=== PATIENT | female | born 1985 | race Caucasian/White ===

== ENCOUNTER 2017-04-06 18:42 | Inpatient (IN) | payer BC ==
[2017-04-06] MEDS ORDERED: Ondansetron 4 MG/2 ML SDV IVPUSH PRN ×2 (19:20→22:13)
[2017-04-06] MEDS ORDERED: Sodium Chloride 0.9% 10 ML Syringe FLUSH PRN (19:20)
[2017-04-06] MEDS ORDERED: Lidocaine 1% 50 ML MDV INJECT ONE (19:20)
[2017-04-06] MEDS ORDERED: Oxytocin/Lactated Ringers 10 UNIT/1,000 ML BAG IV SCH (19:30)
--- NOTE | 2017-04-06 19:38 | PCM.LDHP ---
L&D History of Present Illness - General Date of Service: 04/06/17 Admit Problem/Dx: Patient Status Order with Admit Dx/Problem 04/06/17 19:21 Patient Status [ADT] Routine Admission Diagnosis/Problem Admission Diagnosis/Problem Normal 04/06/17 19:25 Kristen is a 31-year-old 4 para 3003 white female admitted for elective induction of labor at 39-1/7 weeks gestational age with an KG of 04/12/2017 Source of Information: Patient History Limitations: Reports: No Limitations - History of Present Illness Introduction:: Kristen is a 31-year-old 4 para 3003 white female admitted for elective induction of labor. She lives in [facility], has a history of rapid labors and requested induction of labor for this reason. Her KG is 2016 which places her at 39-1/7 weeks. KG is set by an early ultrasound done on 09/26/1999 1711 5/7 weeks gestational age. This is supported by another ultrasound on 11/25/2016. Patient's course has been relatively unremarkable. She has had a decreased platelet count on evaluation. She desires epidural in labor delivery. She had a flu vaccination on 09/26/2016. Her group B strep screen is negative. She did have some abdominal trauma with the shopping cart which ran into her abdomen on 12/05/2016. Has a history of abruption O 2 with the last 2 pregnancies. She does smoke. She plans to nurse. Past history includes the followin. Male born 06/10/2002 at 40 weeks gestational age/6 hours of labor/5 lbs. 1 oz./epidural used/normal spontaneous vaginal delivery 2. Male born 03/11/2009/38 weeks gestational age/4 hours of labor/epidural /normal spontaneous vaginal delivery/abruptio placentae 3. Male infant born 10/04/2011 at 37 weeks gestational age/1 hour labor/5 lbs. 5 oz./epidural/normal spontaneous vaginal delivery/abruption course was otherwise unremarkable. Her first visit was on 09/19. She had regular evaluations throughout and was seen on a routine basis. Her weight gainfrom 150.1 pounds up to 182 pounds for a 32 pound weight gain. Her vital signs remained stable throughout the . Fundal height growth was appropriate. Laboratory testing showed a blood type O+. Initial prenatals labs showed hemoglobin 14.4 platelets 174. Shows normal. Rubella titer shows immunity. RPR is nonreactive. Hepatitis B surface antigen was negative. HIV SCDs negative. GC and chlamydia assays were both negative. Second trimester labs included a hemoglobin which is normal at 12.8 g/dL. Platelets are 162,000. Diabetic screen was normal at 96. Urine culture initially showed Gardnerella vaginalis and patient was treated for this. fibronectin at the time of the shopping cart and segment was negative. She is planning on circumcision for this point. She plans to progress. 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 Tylenol 3 when necessary, patient apparently has no problems with codeine. 2. vitamins 1 daily. Past medical history: 1. Normal spontaneous vaginal delivery 3. 2. Abnormal Pap smear 2013 Past surgical history: 1. Breast augmentation surgery 2. Tonsillectomy as a child 3. Laparoscopy 2 in the years 2001 and 2011 for endometriosis. Family history: mother is alive and well with history of kidney cancer. She also has adult-onset diabetes mellitus. Father is alive and well. 2 brothers and 1 sister alive and well. Maternal grandmother secondary to ovarian cancer. Maternal great grandmother secondary to ovarian cancer. Maternal grandfather is alive but health is unknown. Paternal grandmother secondary to ovarian cancer. Paternal grandfather secondary to bone cancer. No related problems, anesthesia, bleeding or clotting problems noted in the family. Social history: Patient is . is Jessica Nugent. She smokes approximately 7 cigarettes per day. She lives in [facility]. She does not use any drugs or alcohol. She does not work outside the home at this time. Review of systems: In general patient has no complaints. skin-negative Lungs-no infectious symptoms or asthma Cardiovascular-no chest pain or exercise intolerance Breasts-changes associated with -induced GI - -changes associated principally with increased fundal height Musculoskeletal -occasional swelling otherwise unremarkable Neurologic -negative Physical exam: In general the patient is a well-developed, well-nourished, pleasant female stated age in no acute distress. Blood pressure on last evaluation clinic was 108/72, weight was 182.6, heart rate was 133. Her height is 5 feet 11. Pregravid weight is 150.13 with a body mass index of 20.2. In general the patient is a well-developed well-nourished pleasant female stated age in no acute distress. Skin is warm and dry without lesions. Lungs are clear with good breath sounds in all lung bell. Cardiovascular exam shows regular and rhythm without murmurs. Rest exam deferred having that done at her first visit and found to be normal. Breast augmentation has been performed. Abdomen is protuberant with the Spring C fundal height approximately 38 cm. Baby in vertex presentation. Cervix is 2 cm plus/80% effaced/soft/-2/anterior/artificial rupture membranes is performed and reveals clear amniotic fluid Extremities and neurological exam grossly within normal limits. - Related Data Allergies/Adverse Reactions: Allergies Allergy/AdvReac Type Severity Reaction Status Date / Time morphine Allergy Severe Airway Verified 12/27/16 12:40 Tightness H&P Review of Systems - Review of Systems: Review Of Systems: See Below L&D Exam - Exam Exam: See Below - Vital Signs Weight: 82.157 kg Problem List Initiated/Reviewed/Updated: Yes Orders Last 24hrs: Active Orders 24 hr Category Date Time Status Patient Status [ADT] Routine ADT 04/06/17 19:21 Ordered Activity as Tolerated [RC] PFP Care 04/06/17 19:21 Ordered Communication Order [RC] ASDIRECTED Care 04/06/17 19:21 Ordered Heart Tones [RC] ASDIRECTED Care 04/06/17 19:21 Ordered Notify Provider [RC] PFP Care 04/06/17 19:21 Ordered Notify Provider [RC] PRN Care 04/06/17 19:21 Ordered Peripheral IV Care [RC] . DIRECTED Care 04/06/17 19:21 Ordered Pump Management, Intrathecal [RC] ASDIRECTED Care 04/06/17 19:22 Ordered Vital Signs [RC] PER UNIT ROUTINE Care 04/06/17 19:21 Ordered Regular Diet [DIET] Diet 04/06/17 Dinner Ordered CBC WITH AUTO DIFF [HEME] Stat Lab 04/06/17 19:20 Ordered Lactated Ringers [Ringers, Lactated] 1,000 ml Med 04/06/17 19:30 Ordered IV ASDIRECTED Lidocaine 1% [Xylocaine 1%] Med 04/06/17 19:20 Once 10 ml INJECT ONETIME ONE Ondansetron [Zofran] Med 04/06/17 19:20 Ordered 4 mg IVPUSH Q4H PRN Oxytocin/Lactated Ringers [Pitocin in LR 10 Units/1,000 Med 04/06/17 19:30 Ordered ML] 10 unit in 1,000 ml IV TITRATE Sodium Chloride 0.9% [Saline Flush] Med 04/06/17 19:20 Ordered 10 ml FLUSH ASDIRECTED PRN Electronic Heart Tones Ext w TOCO [WOMSER] Ot 04/06/17 19:21 Ordered Routine Electronic Heart Tones Internal [WOMSER] Per Unit Ot 04/06/17 19:21 Ordered Routine Peripheral IV Insertion Adult [OM.PC] Routine Ot 04/06/17 19:21 Ordered Resuscitation Status Routine Resus Stat 04/06/17 19:20 Ordered Assessment/Plan Comment:: Assessment: 1. 39-1/7 week intrauterine , history of rapid labors, increased distance from the hospital as she lives in [facility], multiparous patient with desire for induction of labor. 2. Group B strep screen is negative 3. Patient plans to nurse 4. Desires epidural in labor Plan: 1. Artificial rupture membranes induction of labor. Will augment with Pitocin as necessary. Procedure, risks, benefits are all discussed in detail patient. She appears to understand and wishes to proceed. 2. Encourage nursing after delivery 3. Epidural when necessary 4. Routine soft regular diet in labor.
[2017-04-06] MEDS ORDERED: Pneumococcal Polyvalent-23 Vaccine 0.5 ML SDV IM ONE (20:41)
[2017-04-06] MEDS: Lactated Ringers 1,000 ML IV SCH ×2 (21:07→22:55)
[2017-04-06] MEDS ORDERED: fentaNYL 100 MCG/2 ML SDV EPIDUR PRN (22:13)
[2017-04-06] MEDS ORDERED: ePHEDrine 50 MG/ML SDV IVPUSH PRN (22:13)
[2017-04-06] MEDS ORDERED: Bupivacaine/fentaNYL/NS 100 ML Bag EPIDUR SCH (22:15)
--- NOTE | 2017-04-06 22:18 | PCM.PREANE ---
Preanesthetic Assessment - Anesthesia/Transfusion/Family Hx Anesthesia History: Prior Anesthesia Without Reaction Family History of Anesthesia Reaction: No Transfusion History: No Prior Transfusion(s) Intubation History: Unknown - Review of Systems General: No Symptoms Pulmonary: No Symptoms (smokes 1/2 pack/day times 15 years) Cardiovascular: No Symptoms Gastrointestinal: No Symptoms Neurological: No Symptoms Other: Reports: None - Physical Assessment NPO Status Date: 04/06/17 NPO Status Time: 22:15 Pulse: 79 O2 Sat by Pulse Oximetry: 99 Respiratory Rate: 18 Blood Pressure: 121/73 Temperature: 36.6 C Vital Signs: Last Vital Signs Temp 36.6 C 04/06/17 19:21 Pulse 79 04/06/17 19:21 Resp 18 04/06/17 19:21 BP 121/73 04/06/17 19:21 Pulse Ox 99 04/06/17 19:21 Height: 1.8 m Weight: 85.275 kg ASA Class: 2 Mental Status: Alert & Oriented x3 Airway Class: Mallampati = 2 Dentition: Reports: Normal Dentition (tongue piercing noted), Caries Thyro-Mental Finger Breadths: 3 Mouth Opening Finger Breadths: 3 ROM/Head Extension: Full Lungs: Clear to Auscultation, Normal Respiratory Effort Cardiovascular: Regular Rate, Regular Rhythm, No Murmurs - Lab Values: Laboratory Last Values WBC 13.82 K/mm3 (3.98-10.04) H 04/06/17 19:35 RBC 3.92 M/mm3 (3.98-5.22) L 04/06/17 19:35 Hgb 12.5 gm/L (11.2-15.7) 04/06/17 19:35 Hct 35.7 % (34.1-44.9) 04/06/17 19:35 MCV 91.1 fl (79.4-94.8) 04/06/17 19:35 MCH 31.9 pg (25.6-32.2) 04/06/17 19:35 MCHC 35.0 g/dl (32.2-35.5) 04/06/17 19:35 RDW Std Deviation 42.4 fL (36.4-46.3) 04/06/17 19:35 Plt Count 203 K/mm3 (182-369) 04/06/17 19:35 MPV 10.8 fl (9.4-12.3) 04/06/17 19:35 Neut % (Auto) 70.0 % (34.0-71.1) 04/06/17 19:35 Lymph % (Auto) 20.9 % (19.3-51.7) 04/06/17 19:35 [place] % (Auto) 7.5 % (4.7-12.5) 04/06/17 19:35 Eos % (Auto) 0.9 (0.7-5.8) 04/06/17 19:35 Baso % (Auto) 0.2 % (0.1-1.2) 04/06/17 19:35 Neut # (Auto) 9.67 K/mm3 (1.56-6.13) H 04/06/17 19:35 Lymph # (Auto) 2.89 K/mm3 (1.18-3.74) 04/06/17 19:35 [place] # (Auto) 1.04 K/mm3 (0.24-0.36) H 04/06/17 19:35 Eos # (Auto) 0.12 K/mm3 (0.04-0.36) 04/06/17 19:35 Baso # (Auto) 0.03 K/mm3 (0.01-0.08) 04/06/17 19:35 Above labs reviewed and noted. - Allergies Allergies/Adverse Reactions: Allergies Allergy/AdvReac Type Severity Reaction Status Date / Time morphine Allergy Severe Airway Verified 04/06/17 20:49 Tightness - Anesthesia Plan Pre-Op Medication Ordered: None - Acknowledgements Anesthesia Type Planned: Epidural Pt an Appropriate Candidate for the Planned Anesthesia: Yes Alternatives and Risks of Anesthesia Discussed w Pt/Guardian: Yes Pt/Guardian Understands and Agrees with Anesthesia Plan: Yes PreAnesthesia Questionnaire [employer] History: Reports: , Other (See Below) Other OB/BYN History: hx of abruption x2 - Past Surgical History HEENT Surgical History: Reports: Tonsillectomy Female Surgical History: Reports: Breast Implant, Other (See Below) Other Female Surgeries/Procedures: Abnormal pap in 2014 - SUBSTANCE USE Smoking Status *Q: Current Every Day Smoker Tobacco Use Within Last Twelve Months: Cigarettes Second Hand Smoke Exposure: Yes Recreational Drug Use History: No - HOME MEDS Home Medications: Home Meds Pnv No.122/Iron/Folic Acid [ Multi Tablet] 1 each PO DAILY 04/06/17 [ History] - CURRENT (IN HOUSE) MEDS Current Meds: Current Medications Lactated Ringer's (Ringers, Lactated) 1,000 mls @ 100 mls/hr IV ASDIRECTED DAVID Last Admin: 04/06/17 21:07 Dose: 100 mls/hr Oxytocin/Lactated Ringer's (Pitocin In Lr 10 Units/1,000 Ml) 10 unit in 1,000 mls @ 12 mls/hr IV TITRATE DAVID; 2 MUNITS/MIN PRN Reason: Protocol Last Titration: 04/06/17 21:47 Dose: 6 munits/min, 36 mls/hr Ondansetron HCl (Zofran) 4 mg IVPUSH Q4H PRN PRN Reason: Nausea/Vomiting Sodium Chloride (Saline Flush) 10 ml FLUSH ASDIRECTED PRN PRN Reason: Keep Vein Open Discontinued Medications Lidocaine HCl (Xylocaine 1%) 10 ml INJECT ONETIME ONE Stop: 04/06/17 19:21 Pneumococcal Polyvalent Vaccine (Pneumovax 23) 0.5 ml IM .ONCE ONE Stop: 04/06/17 20:42
[2017-04-06] MEDS ORDERED: fentaNYL 100 MCG/2 ML SDV ONE (22:25)
--- NOTE | 2017-04-07 02:38 | PCM.SN ---
- Free Text/Narrative Note: Kristen is a 31-year-old 4 now para 4004 who was admitted last evening at 39-1/7 weeks gestational age with an KG of 04/12/2017 for elective induction of labor. Induction for increased distance from the hospital (patient lives in [facility]), history of rapid labors, history of abruption placenta. Artificial rupture membranes was accomplished and a short time later Pitocin augmentation was started. She made steady progress to complete cervical dilation by approximately 0200 hrs. on 04/07/2017. She delivered a viable, osorio, male infant with Apgars of 7 and 8, a weight of 2940 g (6 pounds 7.7 ounces) over an intact perineum, in a left occiput anterior position at 0215 hrs on 04/07/2017. There was a nuchal cord which was moderately tight and was reduced over the baby's body. Baby's nose and mouth are bulb suction. The cord was clamped 2 and was cut by the father of the baby. Baby was placed on mom's abdomen. Pitocin was started IV to facilitate uterine tone and decrease bleeding. Cord blood was obtained. Placenta then delivered in a Gregory presentation, intact and complete. It had a three-vessel cord. The placenta was discarded per patient desire. The perineum was intact and no lacerations were noted in the area of vagina and vulva. Estimated blood loss was 100 mL. Patient plans to nurse. Condition: Good
[2017-04-07] MEDS ORDERED: Acetaminophen 325 MG Tab PO PRN (03:11)
[2017-04-07] MEDS ORDERED: Benzocaine/Menthol 20%-0.5% Spray 56 GM Canister TOP PRN (03:11)
[2017-04-07] MEDS ORDERED: Witch Hazel Medicated Pads 100/Jar TOP PRN (03:11)
[2017-04-07] MEDS ORDERED: Lanolin 100% Cream 7 GM Tube TOP PRN (03:11)
[2017-04-07] MEDS: Docusate Sodium 100 MG Cap PO PRN ×2 (03:59→21:06)
[2017-04-07] MEDS: Ibuprofen 600 MG Tab PO PRN ×3 (03:59→21:06)
[2017-04-07] MEDS ORDERED: Acetaminophen/Codeine 300-30 MG Tab PO PRN (12:38)
--- NOTE | 2017-04-07 18:49 | PCM48HPAN ---
Post Anesthesia Note - EVALUATION WITHIN 48HRS OF ANESTHETIC Vital Signs in Normal Range: Yes Patient Participated in Evaluation: Yes Respiratory Function Stable: Yes Airway Patent: Yes Cardiovascular Function Stable: Yes Hydration Status Stable: Yes Pain Control Satisfactory: Yes Nausea and Vomiting Control Satisfactory: Yes Mental Status Recovered: Yes - COMMENTS/OBSERVATIONS Free Text/Narrative:: Patient denies any headaches, back pain, or residual numbness/tingling to LE. Doing well resting in bed
[2017-04-07] MEDS ORDERED: Bupivacaine 0.25% 10 ML SDV ONE (22:22)
[2017-04-08] MEDS: Ibuprofen 600 MG Tab PO PRN (03:53)
[2017-04-08 04:27] VITALS: BP 111/68
--- NOTE | 2017-04-08 07:02 | PCM.DCSUM1 ---
Discharge Summary - Hospital Course Free Text/Narrative:: leif is a 31-year-old 4 now para 4004 who was admitted last evening at 39-1/7 weeks gestational age with an KG of 04/12/2017 for elective induction of labor. Induction for increased distance from the hospital (patient lives in [facility]), history of rapid labors, history of abruption placenta. Artificial rupture membranes was accomplished and a short time later Pitocin augmentation was started. She made steady progress to complete cervical dilation by approximately 0200 hrs. on 04/07/2017. She delivered a viable, osorio, male infant with Apgars of 7 and 8, a weight of 2940 g (6 pounds 7.7 ounces) over an intact perineum, in a left occiput anterior position at 0215 hrs on 04/07/2017. There was a nuchal cord which was moderately tight and was reduced over the baby's body. Baby's nose and mouth are bulb suction. The cord was clamped 2 and was cut by the father of the baby. Baby was placed on mom's abdomen. Pitocin was started IV to facilitate uterine tone and decrease bleeding. Cord blood was obtained. Placenta then delivered in a Gregory presentation, intact and complete. It had a three-vessel cord. The placenta was discarded per patient desire. The perineum was intact and no lacerations were noted in the area of vagina and vulva. Estimated blood loss was 100 mL. Patient plans to nurse. patient is done well. She is nursing without problems, ambulating well and has minimal lochia. Voiding without concerns and has minimal pain. She is desiring to be discharged. - Discharge Data Discharge Date: 04/08/17 Discharge Disposition: Home, Self-Care 01 Condition: Good - Patient Instructions Diet: Regular Diet as Tolerated (Nursing diet with increased calories and calcium as directed.) Activity: As Tolerated (No intercourse or tampons until bleeding resolves) Driving: May Drive Today Showering/Bathing: May Shower (May take a bath) Notify Provider of: Fever, Increased Pain, Swelling and Redness, Nausea and/or Vomiting - Discharge Plan Home Medications: Home Meds Pnv No.122/Iron/Folic Acid [ Multi Tablet] 1 each PO DAILY 04/06/17 [ History] Ibuprofen [IJD: Ibuprofen] 600 mg PO Q4H PRN #30 tablet 04/08/17 [Rx] Referrals: Panchito Shrestha MD [Physician] - (RTC-Dr. Shrestha-6 weeks.) - Discharge Summary/Plan Comment DC Time >30 min.: No Discharge Summary/Plan Comment: Discharge instructions: 1. Discharge home 2. Regular, high fiber, nursing diet. 3. Precautions given concern increased pain, bleeding, temperature, signs/ symptoms of DVT/PE 4. Medications per home medication was printed, discussed with and given to the patient. 5. Return to clinic-Dr. Shrestha-6 weeks seen [facility]. Diagnosis: Term , delivered Condition: Good - Patient Data Vitals - Most Recent: Last Vital Signs Temp 36.5 C 04/08/17 03:50 Pulse 63 04/08/17 03:50 Resp 17 04/08/17 03:50 BP 111/68 04/08/17 03:50 Pulse Ox 99 04/08/17 03:50 Weight - Most Recent: 85.275 kg I&O - Last 24 hours: Intake & Output 04/07/17 04/07/17 04/08/17 14:59 22:59 06:59 Intake Total 120 0 Balance 120 0 Med Orders - Current: Current Medications Acetaminophen (Tylenol) 650 mg PO Q4H PRN PRN Reason: mild pain or fever Last Admin: 04/07/17 08:42 Dose: 650 mg Acetaminophen/Codeine Phosphate (Tylenol With Codeine No.3 300mg/30mg) 2 tab PO Q4H PRN PRN Reason: Headache/Pain Last Admin: 04/07/17 13:11 Dose: 2 tab Benzocaine/Menthol (Dermoplast Pain Relief [place]) 0 gm TOP ASDIRECTED PRN PRN Reason: Perineal Comfort Measure Docusate Sodium (Colace) 100 mg PO BID PRN PRN Reason: Constipation Last Admin: 04/07/17 21:06 Dose: 100 mg Emollient Ointment (Lansinoh Hpa) 0 gm TOP ASDIRECTED PRN PRN Reason: Sore Nipples Ibuprofen (Motrin) 600 mg PO Q4H PRN PRN Reason: Mild pain or fever Last Admin: 04/08/17 03:53 Dose: 600 mg Witch Heather (Tucks) 1 pad TOP ASDIRECTED PRN PRN Reason: Hemorrhoid pain Discontinued Medications Bupivacaine HCl (Sensorcaine-Mpf 0.25%) 10 ml .ROUTE .STK-MED ONE Stop: 04/07/17 22:23 Ephedrine Sulfate (Ephedrine Sulfate) 5 mg IVPUSH ASDIRECTED PRN PRN Reason: Hypotension Fentanyl (Sublimaze) Confirm Administered Dose 100 mcg .ROUTE .STK-MED ONE Stop: 04/06/17 22:26 Last Admin: 04/06/17 22:33 Dose: 100 mcg Fentanyl (Sublimaze) 100 mcg EPIDUR Q3H PRN PRN Reason: Pain Fentanyl/Bupivacaine HCl (Fentanyl/Bupivacaine/Ns 2 Mcg-0.125% 100 Ml) 100 ml EPIDUR ASDIRECTED DAVID Last Admin: 04/06/17 22:55 Dose: 100 ml Lactated Ringer's (Ringers, Lactated) 1,000 mls @ 100 mls/hr IV ASDIRECTED DAVID Last Admin: 04/06/17 22:55 Dose: 100 mls/hr Oxytocin/Lactated Ringer's (Pitocin In Lr 10 Units/1,000 Ml) 10 unit in 1,000 mls @ 12 mls/hr IV TITRATE DAVID; 2 MUNITS/MIN PRN Reason: Protocol Last Titration: 04/07/17 02:16 Dose: 999 mls/hr Lidocaine HCl (Xylocaine 1%) 10 ml INJECT ONETIME ONE Stop: 04/06/17 19:21 Last Admin: 04/07/17 04:46 Dose: Not Given Ondansetron HCl (Zofran) 4 mg IVPUSH Q4H PRN PRN Reason: Nausea/Vomiting Ondansetron HCl (Zofran) 4 mg IVPUSH ONETIME PRN PRN Reason: Nausea/Vomiting Pneumococcal Polyvalent Vaccine (Pneumovax 23) 0.5 ml IM .ONCE ONE Stop: 04/06/17 20:42 Last Admin: 04/07/17 08:45 Dose: Not Given Sodium Chloride (Saline Flush) 10 ml FLUSH ASDIRECTED PRN PRN Reason: Keep Vein Open *Q Meaningful Use (DIS) - VTE *Q VTE Criteria *Q: - Stroke *Q Stroke Criteria *Q: - AMI *Q AMI Criteria *Q:
== END 2017-04-08 09:30 | disposition home or self-care (01) | DRG 560 ==
LOC: JD.OBCHECK 18:42 → JD.OB 18:43 → OBSVTOIN 04-07 02:15 → JD.OB 04-07 02:15
PROVIDERS: ADMIT Obstetrics & Gynecology; ATTEND Obstetrics & Gynecology
PROC: 10E0XZZ Delivery of Products of Conception, External Approach (ICD-10-PCS; principal; 2017-04-07)
PROC: 10907ZC Drainage of Amniotic Fluid, Therapeutic from Products of Conception, Via Natural or Artificial Opening (ICD-10-PCS; 2017-04-07)
PROC: 3E033VJ Introduction of Other Hormone into Peripheral Vein, Percutaneous Approach (ICD-10-PCS; 2017-04-07)
DX: O69.1XX0 Labor and delivery complicated by cord around neck, with compression, not applicable or unspecified (principal); Z3A.39 39 weeks gestation of pregnancy; Z37.0 Single live birth; Z88.5 Allergy status to narcotic agent
CPT/HCPCS: 36415; 85025; 85027; A9270-GY; J2590; J3010; J7120

== ENCOUNTER 2019-06-01 02:15 | Inpatient (IN) | payer BC ==
[2019-06-01] MEDS ORDERED: Oxytocin 10 Units/1 ML SDV ONE (02:24)
[2019-06-01] MEDS ORDERED: Sodium Chloride 0.9% 10 ML Syringe FLUSH PRN (02:43)
[2019-06-01] MEDS ORDERED: Nalbuphine 10 MG/1 ML Vial IVPUSH PRN (02:43)
[2019-06-01] MEDS ORDERED: Lactated Ringers 1,000 ML IV SCH (02:45)
--- NOTE | 2019-06-01 03:05 | PCM.LDHP ---
L&D History of Present Illness - General Date of Service: 06/01/19 Admit Problem/Dx: Patient Status Order with Admit Dx/Problem 06/01/19 02:15 Patient Status [ADT] Routine Admission Diagnosis/Problem Admission Diagnosis/Problem 06/01/19 02:50 Kristen is a 33 y/o white female at 38 5/7 weeks with an KG of 2018 admitted to L and D in active labor and dilated to 10 cm. Source of Information: Patient History Limitations: Reports: No Limitations - History of Present Illness Introduction:: Kristen is a 33 y/o G5 P 5005 white female at 38 5/7 weeks with an KG of 2018 admitted to L and D in active labor and dilated to 10 cm. She started in labor early on the a.m. of 06/01/2019. She has been rushed to the hospital by private vehicle and made in time to push with 2 contractions and delivered the baby. This note is dictated after delivery the baby. She was admitted into labor and delivery bed, was found be completely dilated. She pushed 2 contractions and delivered a 5 lbs. 13 oz. (2660 g) male infant with Apgars of 8 and 9, length of 18 inches in a direct occiput anterior position over an intact perineum at 0226 hrs on 06/01/2019.. Patient was given IM [id number] units to facilitate increase uterine tone and decreased likelihood of bleeding. No stitches were necessary. Patient had an estimated blood loss of 200 mL. Placenta delivered at 0229 hrs., intact, in a Gregory presentation. It appeared intact and complete and was discarded per patient desire. Both mom and baby are doing well. S1 blood loss 200 mL. Mother plans to breast-feed. TITLE COORDINATOR history 5 now para 5005. KG 06/10/2019 as determined by an ultrasound done on 10/26/2018 at 7-4/7 weeks gestational age. It was supported by 2 other ultrasounds done on 01/21/2019 and 02/22/2019. She's course is been unremarkable with the exception that baby is felt to be small and this was felt at least in part be due to the fact that the patient smokes proximal one pack cigarettes per day. Fundal height growth has been to 35 cm. Her weight gain was from 161.2 pounds to 186 pounds for prostate 24 pound weight gain. Her vital signs were stable throughout the course. She desired an epidural and labor was not able to receive this because of the late arrival at the hospital in labor. Baby had an echogenic focus in the heart which persisted even with repeat ultrasound. Her [place] depression screening score is 4/30 on 01/18/2019. She is group B strep negative. Patient had history of abruption with second and third pregnancies. [place] test was done and was negative. She plans to breast-feed. Previous obstetric history includes the following: Patient had menarche at age 10. Cycles regular at approximately every 30 days. Her last menstrual period was unknown. Her menses are irregular. Deliveries have included the followin. Male infant born 06/10/2002 at 40 weeks gestational age5 lbs. 1 oz.morning [place] 2. Male born 03/11/2009 at 38 weeks gestational age4 hours of labor5 lbs. 14 oz.[place] 3. Male born 10/04/2011 at 37 weeks gestational age after 1 hour of labor5 lbs. 5 oz.[place]. 4. Male infant born [birth year]20176 lbs. 7 oz.3 hours laborNSVDepidural usedchild's name is Mauricio. First laboratory testing in showed blood to be O+ with negative antibody screen. First hemoglobin is 13.2 g/dL and platelets are 222,000. Passer was negative with exception of positive HPV. Her rubella titer showed immunity. RPR is nonreactive. Initial urine culture showed Gardnerella vaginalis which was treated with metronidazole by mouth. Hepatitis B surface antigen and HIV assays were both negative. Chlamydia and gonorrhea were both negative. Second trimester labs showed a hemoglobin of 11.7 g deciliter and platelets were 231,000. Her 1 hour GTT was normal at 130. RPR 03/15 was negative and group B strep screen was negative. Allergies: Morphine derivatives which causes anaphylaxis and Medications: vitamins 1 daily Past medical history: 1. Normal spontaneous vaginal delivery 4 prior to this delivery 2. Abruption placenta 2 3. Abnormal Pap smear 2013 and positive HPV on Pap smear early in this . Past surgical history: 1. Tonsillectomy as a child 2. Laparoscopy 2 in 2001 and again in 2011 with diagnosis of endometriosis. 3. Breast augmentation surgery. Family history: Mother is alive both history Kidney cancer and adult-onset diabetes mellitus. Father is alive and well. 2 brothers and 1 sister alive and well. Maternal grandmother is secondary to ovarian cancer. Paternal great-grandmother with history of ovarian cancer. Maternal grandfather is alive but health is unknown. Paternal grandmother is secondary to ovarian cancer. Paternal grandfather secondary to bone cancer. No - related problems anesthesia, bleeding asthma or clotting problems noted in the family. Social history: Patient is . is Renetta Nugent. They live in [place], [place]. She smokes proximal one pack serous per day. She does not use any other significant loss of alcohol or drugs. Not work outside the home. Review of systems: Upon arrival patient was in very active labor and felt the need to push. She was placed in the labor and delivery bed and was found to be dilated to complete. Within 2 contractions patient delivered. Skin: Negative Lungs: No infectious symptoms or shortness of breath Cardiovascular: No chest pain or exercise intolerance Breasts: Changes associated with . GI: Negative : Changes associated Musculoskeletal: Negative Neurological: Negative In general the patient is well-developed, well-nourished, pleasant female of stated age in acute distress secondary to active labor. Skin is warm dry without lesions. HEENT, neck and back within normal limits. Lungs are clear with good breath sounds in all lung bell. Cardiovascular exam shows regular and rhythm without murmurs. Abdomen is flat, soft, nontender without masses or organomegaly. Positive bowel sounds are noted. No inguinal lymphadenopathy or hernias are noted. Genital cervix was dilated to complete. Baby at a +2 station upon initial evaluation.. Extremities and neurological exam are grossly within normal limits. - Related Data Allergies/Adverse Reactions: Allergies Allergy/AdvReac Type Severity Reaction Status Date / Time morphine Allergy Severe Airway Verified 05/24/19 21:41 Tightness Home Medications: Home Meds Pnv No.122/Iron/Folic Acid [ Multi Tablet] 1 each PO DAILY 04/06/17 [ History] Ibuprofen [IJD: Ibuprofen] 600 mg PO Q4H PRN #30 tablet 04/08/17 [Rx] Acetaminophen with Codeine [Tylenol with Codeine #3 Tablet] 2 each PO Q6HR PRN # 30 tablet 05/25/19 [Rx] Past Medical History TITLE COORDINATOR History: Reports: , Other (See Below) Other OB/BYN History: hx of abruption x2 - Past Surgical History HEENT Surgical History: Reports: Tonsillectomy Female Surgical History: Reports: Breast Implant, Other (See Below) Other Female Surgeries/Procedures: Abnormal pap in 2014 Social & Family History - Family History Family Medical History: Noncontributory - Caffeine Use Caffeine Use: Reports: Soda Caffeine Use Comment: 2/day H&P Review of Systems - Review of Systems: Review Of Systems: See Below L&D Exam - Exam Exam: See Below Problem List Initiated/Reviewed/Updated: Yes Orders Last 24hrs: Active Orders 24 hr Category Date Time Status Patient Status [ADT] Routine ADT 06/01/19 02:15 Active Activity as Tolerated [RC] PFP Care 06/01/19 02:43 Active Communication Order [RC] ASDIRECTED Care 06/01/19 02:43 Active Heart Tones [RC] ASDIRECTED Care 06/01/19 02:44 Active Non Stress Test [RC] PER UNIT ROUTINE Care 06/01/19 02:43 Active Notify Provider [RC] PFP Care 06/01/19 02:43 Active Notify Provider [RC] PRN Care 06/01/19 02:43 Active Peripheral IV Care [RC] . DIRECTED Care 06/01/19 02:44 Active Vital Signs [RC] PER UNIT ROUTINE Care 06/01/19 02:43 Active Regular Diet [DIET] Diet 06/01/19 Breakfast Active CBC WITH AUTO DIFF [HEME] Stat Lab 06/01/19 02:43 Ordered RAPID PLASMA REAGIN,RPR [CHEM] Routine Lab 06/01/19 02:43 Ordered Lactated Ringers [Ringers, Lactated] 1,000 ml Med 06/01/19 02:45 Ordered IV ASDIRECTED Nalbuphine [Nubain] Med 06/01/19 02:43 Ordered 10 mg IVPUSH Q2H PRN Sodium Chloride 0.9% [Saline Flush] Med 06/01/19 02:43 Ordered 10 ml FLUSH ASDIRECTED PRN Electronic Heart Tones Ext w TOCO [WOMSER] Oth 06/01/19 02:43 Ordered Routine Electronic Heart Tones Internal [WOMSER] Per Unit Oth 06/01/19 02:43 Ordered Routine Peripheral IV Insertion Adult [OM.PC] Routine Oth 06/01/19 02:43 Ordered Resuscitation Status Routine Resus Stat 06/01/19 02:43 Ordered Medication Orders Lactated Ringer's (Ringers, Lactated) 1,000 mls @ 100 mls/hr IV ASDIRECTED DAVID Nalbuphine HCl (Nubain) 10 mg IVPUSH Q2H PRN PRN Reason: Pain Sodium Chloride (Saline Flush) 10 ml FLUSH ASDIRECTED PRN PRN Reason: Keep Vein Open Assessment/Plan Comment:: 1. 38-5/7 week intrauterine , as delivery with 2 contractions of pushing after admission to labor and delivery. No cervical lacerations or problems encountered. Small for gestational age baby. 2. Group B strep screen negative 3. Patient plans to breast-feed. 4. Patient has a history of smoking 1 pack cigarettes per day. Plan: 1. Patient has received IM [id number] units. We'll monitor bleeding very closely. Patient plans to breast-feed which will assist in reduction of bleeding 2. Routine care 3. We'll wait with establishing IV access at this time unless needed 4. Support breast feeding decision.
--- NOTE | 2019-06-01 03:30 | PCM.SN ---
- Free Text/Narrative Note: Labor and delivery note: Kristen is a 33 y/o G5 P 5005 white female at 38 5/7 weeks with an KG of 2018 admitted to L and D in active labor and dilated to 10 cm. She started in labor early on the a.m. of 06/01/2019. She has been rushed to the hospital by private vehicle and made in time to push with 2 contractions and delivered the baby. This note is dictated after delivery the baby. She was admitted into labor and delivery bed, was found be completely dilated. She pushed 2 contractions and delivered a 5 lbs. 13 oz. (2660 g) male infant with Apgars of 8 and 9, length of 18 inches in a direct occiput anterior position over an intact perineum at 0226 hrs on 06/01/2019.. Patient was given IM [id number] units to facilitate increase uterine tone and decreased likelihood of bleeding. No stitches were necessary. Patient had an estimated blood loss of 200 mL. Placenta delivered at 0229 hrs., intact, in a Gregory presentation. It appeared intact and complete and was discarded per patient desire. Both mom and baby are doing well. S1 blood loss 200 mL. Mother plans to breast-feed.
[2019-06-01] MEDS ORDERED: Lanolin 100% Cream 7 GM Tube TOP PRN (05:58)
[2019-06-01] MEDS ORDERED: Witch Hazel Medicated Pads 40/Jar TOP PRN (05:58)
[2019-06-01] MEDS ORDERED: Docusate Sodium 100 MG Cap PO PRN (05:58)
[2019-06-01] MEDS ORDERED: Benzocaine/Menthol 20%-0.5% Spray 56 GM Canister TOP PRN (05:58)
[2019-06-01] MEDS ORDERED: Acetaminophen 325 MG Tab PO PRN (05:58)
[2019-06-01] MEDS: Ibuprofen 600 MG Tab PO PRN ×2 (06:12→18:56)
[2019-06-01] MEDS: Prenatal Multivitamin with Calcium/Folic Acid/Iron Tab PO SCH (12:24)
--- NOTE | 2019-06-02 05:35 | PCM.DCSUM1 ---
Discharge Summary - Hospital Course Free Text/Narrative:: Kristen is a 33 y/o G5 P 5005 white female at 38 5/7 weeks with an KG of 2018 admitted to L and D in active labor and dilated to 10 cm. She started in labor early on the a.m. of 06/01/2019. She has been rushed to the hospital by private vehicle and made in time to push with 2 contractions and delivered the baby. This note is dictated after delivery the baby. She was admitted into labor and delivery bed, was found be completely dilated. She pushed 2 contractions and delivered a 5 lbs. 13 oz. (2660 g) male infant with Apgars of 8 and 9, length of 18 inches in a direct occiput anterior position over an intact perineum at 0226 hrs on 06/01/2019.. Patient was given IM [id number] units to facilitate increase uterine tone and decreased likelihood of bleeding. No stitches were necessary. Patient had an estimated blood loss of 200 mL. Placenta delivered at 0229 hrs., intact, in a Gregory presentation. It appeared intact and complete and was discarded per patient desire. Both mom and baby are doing well. Delivery blood loss 200 mL. Mother plans to breast-feed. patient is doing well. She is ambulating well, has minimal lochia and is nursing without problems. Her voiding is without concern. Patient is desiring discharge home today. Diagnosis: Stroke: No - Discharge Data Discharge Date: 06/02/19 Discharge Disposition: Home, Self-Care 01 Condition: Good - Referral to Home Health Primary Care Physician: Panchito Shrestha MD - Patient Instructions Diet: Regular Diet as Tolerated (Nursing diet with increase calories and calcium is recommended) Activity: As Tolerated (No intercourse and tampons until bleeding resolves) Driving: May Drive Today Showering/Bathing: May Shower (May take a bath) Notify Provider of: Fever, Increased Pain, Swelling and Redness, Nausea and/or Vomiting - Discharge Plan Home Medications: Home Meds Pnv No.122/Iron/Folic Acid [ Multi Tablet] 1 each PO DAILY 04/06/17 [ History] Acetaminophen [Tylenol] 650 mg PO Q4H PRN tablet 06/02/19 [Rx] Ibuprofen [Motrin] 600 mg PO Q4H PRN tablet 06/02/19 [Rx] Patient Handouts: Steps to Quit Smoking Referrals: Panchito Shrestha MD [Primary Care Provider] - - Discharge Summary/Plan Comment DC Time >30 min.: No Discharge Summary/Plan Comment: Discharge instructions: 1. Discharge home 2. Diet, activity and follow-up discussed with patient. Recommend nursing diet with increased calories and calcium. 3. Precautions given concern increased pain, bleeding, temperature, signs/ symptoms of DVT/PE. 4. Medications per home medication was printed, discussed with and given to the patient. 5. Return to clinic-Dr. Shrestha[facility] in 2 weeks. Diagnosis: Term -delivered Condition: Good - Patient Data Vitals - Most Recent: Last Vital Signs Temp 36.6 C 06/02/19 04:07 Pulse 63 06/02/19 04:07 Resp 16 06/02/19 04:07 BP 106/56 L 06/02/19 04:07 Pulse Ox 97 06/02/19 04:07 Weight - Most Recent: 83.915 kg I&O - Last 24 hours: Intake & Output 06/01/19 06/01/19 06/02/19 14:59 22:59 06:59 Intake Total 160 Balance 160 Lab Results - Last 24 hrs: Laboratory Results - last 24 hr 06/01/19 Range/Units 02:54 RPR Non-reactive (NONREACTIVE) Med Orders - Current: Current Medications Acetaminophen (Tylenol) 650 mg PO Q4H PRN PRN Reason: mild pain or fever Benzocaine/Menthol (Dermoplast Pain Relief [place]) 0 gm TOP ASDIRECTED PRN PRN Reason: Perineal Comfort Measure Last Admin: 06/01/19 06:12 Dose: 1 canister Docusate Sodium (Colace) 100 mg PO BID PRN PRN Reason: Constipation Last Admin: 06/01/19 22:14 Dose: 100 mg Emollient Ointment (Lansinoh Hpa) 0 gm TOP ASDIRECTED PRN PRN Reason: Sore Nipples Ibuprofen (Motrin) 600 mg PO Q4H PRN PRN Reason: Mild pain or fever Last Admin: 06/01/19 18:56 Dose: 600 mg Prenat Multivit/[place]/Iron/Folic Ac ( Plus Iron) 1 each PO DAILY DAVID Last Admin: 06/01/19 12:24 Dose: 1 each Witch Heather (Tucks) 1 pad TOP ASDIRECTED PRN PRN Reason: Pain Last Admin: 06/01/19 06:13 Dose: 1 can Discontinued Medications Lactated Ringer's (Ringers, Lactated) 1,000 mls @ 100 mls/hr IV ASDIRECTED DAVID Nalbuphine HCl (Nubain) 10 mg IVPUSH Q2H PRN PRN Reason: Pain Oxytocin (Pitocin) Confirm Administered Dose 10 unit .ROUTE .STK-MED ONE Stop: 06/01/19 02:25 Last Admin: 06/01/19 02:28 Dose: 10 unit Sodium Chloride (Saline Flush) 10 ml FLUSH ASDIRECTED PRN PRN Reason: Keep Vein Open
[2019-06-02] MEDS: Prenatal Multivitamin with Calcium/Folic Acid/Iron Tab PO SCH (08:30)
[2019-06-02] MEDS: Ibuprofen 600 MG Tab PO PRN (08:32)
[2019-06-02 11:29] VITALS: BP 124/77; PULSE 71
== END 2019-06-02 10:50 | disposition home or self-care (01) | DRG 560 ==
LOC: JD.OBCHECK 02:15 → JD.OB 02:15 → JD.OBCHECK 02:19 → JD.OB 02:20 → OBSVTOIN 02:26
PROVIDERS: ADMIT Obstetrics & Gynecology; ATTEND Obstetrics & Gynecology
PROC: 10E0XZZ Delivery of Products of Conception, External Approach (ICD-10-PCS; principal; 2019-06-01)
PROC: 3E033VJ Introduction of Other Hormone into Peripheral Vein, Percutaneous Approach (ICD-10-PCS; 2019-06-01)
DX: O99.334 Smoking (tobacco) complicating childbirth (principal); F17.210 Nicotine dependence, cigarettes, uncomplicated; Z37.0 Single live birth; Z3A.38 38 weeks gestation of pregnancy; Z88.5 Allergy status to narcotic agent; Z90.89 Acquired absence of other organs
CPT/HCPCS: 36415; 59025; 59409; 85025; 86592; A9270-GY; J2590